=== PATIENT | female | born 1985 | race Caucasian/White ===

== ENCOUNTER 2024-10-11 13:43 | Emergency (ER) | payer OTHER | END 2024-10-11 14:05 | disposition home or self-care (01) | LOC: FB.ED 13:43 | DX: Z02.89 Encounter for other administrative examinations (principal); I10 Essential (primary) hypertension; Z88.0 Allergy status to penicillin; Z88.2 Allergy status to sulfonamides; Z88.8 Allergy status to other drugs, medicaments and biological substances; Z79.899 Other long term (current) drug therapy; Z79.51 Long term (current) use of inhaled steroids | CPT/HCPCS: 99283 ==